=== PATIENT | male | born 1955 | race African-American/Black ===

== ENCOUNTER 2019-08-28 22:30 | Inpatient (IN) | payer BC, MEDICARE ==
[~2019-08-28] VITALS: Ht 177.8 cm; Wt 107.5 kg
[2019-08-28 22:41] VITALS: BP 105/63
--- NOTE | 2019-08-28 22:44 | NUR ---
ED Nurse Note: pt brought in by RENÉE from home c/c epigastric pain with syncopal episode, per EMS report, pt had syncopal episode witnessed by family and pt regained consciousness spontaneously, pt states he was just sitting on the sofa watching tv when this happened, pt reports he hasn't been eating well today but reports he drank two shots of vodka with orange juice. on scene, ems reports pt was hypotensive, systolic in 60s. iv started and fluid started by the medic on scene. pt currently AA&ox4, gcs=15, skin warm and dry, resp even and unlabored on RA, no sx distress, denies n/v/d, sinus rhythm on balance truer, vss, will cont monitor. safety precautions in place, family at the bedside, pt advised to notify staff if needed assist.
[2019-08-28 22:46] LABS: BASOPHILS % (AUTO) 1.2 % (0.0-2.0); EOSINOPHILS % (AUTO) 3.3 % (0.0-3.0); HEMATOCRIT 41.7 % (42.0-52.0); LYMPHOCYTES % (AUTO) 39.7 % (20.0-45.0); MEAN CORPUSCULAR VOLUME 87 FL (80-99); MONOCYTES % (AUTO) 9.7 % (1.0-10.0); PLATELET COUNT 233 K/UL (150-450); RED BLOOD COUNT 4.81 M/UL (4.70-6.10); RED CELL DISTRIBUTION WIDTH 11.4 % (11.6-14.8); WHITE BLOOD COUNT 4.7 K/UL (4.8-10.8)
[2019-08-28 22:58] LABS: ANION GAP 11 mmol/L (5-15); BLOOD UREA NITROGEN 17 mg/dL (7-18); CALCIUM 8.6 MG/DL (8.5-10.1); CARBON DIOXIDE 26 MMOL/L (21-32); CHLORIDE 106 MMOL/L (98-107); CREATININE 1.6 MG/DL (0.55-1.30); SODIUM 143 MMOL/L (136-145)
[2019-08-28] MEDS ORDERED: Aspirin Baby 81mg ORAL ONE (23:00)
[2019-08-28 23:09] LABS: ALANINE AMINOTRANSFERASE 41 U/L (12-78); ALBUMIN/GLOBULIN RATIO 1.3 (1.0-2.7); ALKALINE PHOSPHATASE 77 U/L (46-116); ASPARTATE AMINO TRANSFERASE 24 U/L (15-37); BILIRUBIN,TOTAL 0.5 MG/DL (0.2-1.0)
[2019-08-28 23:44] VITALS: BP 106/60
--- NOTE | 2019-08-28 23:44 | NUR ---
ED Nurse Note: ice pack provided for pt's forehead to help with swelling pt provided with warm blanket and safety precautions in place, pt advised to notify staff if need assist. pt resting at this time.
[2019-08-29] MEDS ORDERED: GARLIC1 EAC1 PO (00:01)
[2019-08-29] MEDS ORDERED: FISH OIL CAP1000 MG ORAL (00:01)
[2019-08-29] MEDS ORDERED: GINGER250 MG PO (00:01)
[2019-08-29] MEDS ORDERED: MULTIVITAMINS1 EAC2 ORAL (00:01)
--- NOTE | 2019-08-29 00:02 | Emergency Room Report ---
History of Present Illness General Chief Complaint: Abdominal Pain Source: EMS Present Illness HPI Patient is a 64-year-old male presents after a witnessed syncopal episode. He had been brought in by EMS. Patient denies any preceding chest discomfort. He reports having some prior history of hypertension. Denies any recent vomiting or diarrhea. Denies any bloody stools. Reports having some burning sensation to the epigastric area initially. Reports feeling somewhat hot prior to passing out. No prior syncopal episodes. Denies any headache currently. Denies any other discomfort to his extremities or to his neck. He had prior history of some orthopedic surgeries as well as hypertension but does not currently take any medications. Allergies: Coded Allergies: PENICILLINS (Unverified Allergy, Mild, 08/28/19) Patient History Past Medical History: see triage record, HTN Reviewed Nursing Documentation: PMH: Agreed; PSxH: Agreed Nursing Documentation-PMH Past Medical History: No Stated History Review of Systems All Other Systems: negative except mentioned in HPI Physical Exam Vital Signs Date Time Temp Pulse Resp B/P (MAP) Pulse Ox O2 Delivery O2 Flow Rate FiO2 08/28/19 22:22 97.9 64 20 117/72 (87) 96 Nasal Cannula 2.0 Sp02 EP Interpretation: reviewed, normal General Appearance: normal inspection, well appearing, no apparent distress, alert, GCS 15, obese Head: other - forehead swelling, no laceration Eyes: bilateral eye PERRL ENT: normal ENT inspection, hearing grossly normal, normal voice Neck: normal inspection, full range of motion, supple, no bony tend Respiratory: normal inspection, lungs clear, normal breath sounds, no respiratory distress, no retraction, no wheezing Cardiovascular #1: regular rate, rhythm, no edema Gastrointestinal: normal inspection, normal bowel sounds, non tender, soft, no guarding, no hernia Genitourinary: no CVA tenderness Musculoskeletal: normal inspection, back normal, normal range of motion Neurologic: normal inspection, alert, oriented x3, responsive, pharmacist technician III-XII nml as tested, speech normal Psychiatric: normal inspection, judgement/insight normal, mood/affect normal Skin: no rash Medical Decision Making Diagnostic Impression: Primary Impression: Syncope Additional Impression: Bradycardia ER Course Presented after syncopal episode. Differential diagnosis include was not limited to arrhythmia, vasovagal episode, dehydration, pulmonary embolism among others. Because of complexity of patient's case laboratory tests and imaging studies were ordered. Patient was noted to have some prior history of hypertension however blood pressure was noted to be low. He denied any leg pain or swelling consistent with deep venous thrombosis. Patient's mental status appeared to be at baseline throughout ER course. Patient was given oral aspirin. EKG showed sinus bradycardia with biatrial enlargement. Patient does state that he is a former smoker. Patient's oxygen saturation is 99%. He was started on IV fluids. Dr. Micheal Aranda was contacted for inpatient observation and agreed to admit the patient. Labs Test 08/28/19 22:35 White Blood Count 4.7 K/UL (4.8-10.8) Red Blood Count 4.81 M/UL (4.70-6.10) Hemoglobin 15.0 G/DL (14.2-18.0) Hematocrit 41.7 % (42.0-52.0) Mean Corpuscular Volume 87 FL (80-99) Mean Corpuscular Hemoglobin 31.1 PG (27.0-31.0) Mean Corpuscular Hemoglobin Concent 35.9 G/DL (32.0-36.0) Red Cell Distribution Width 11.4 % (11.6-14.8) Platelet Count 233 K/UL (150-450) Mean Platelet Volume 7.8 FL (6.5-10.1) Neutrophils (%) (Auto) 46.0 % (45.0-75.0) Lymphocytes (%) (Auto) 39.7 % (20.0-45.0) Monocytes (%) (Auto) 9.7 % (1.0-10.0) Eosinophils (%) (Auto) 3.3 % (0.0-3.0) Basophils (%) (Auto) 1.2 % (0.0-2.0) Prothrombin Time 10.3 SEC (9.30-11.50) Prothromb Time International Ratio 1.0 (0.9-1.1) Activated Partial Thromboplast Time 25 SEC (23-33) D-Dimer 0.29 mg/L FEU (0.00-0.49) Sodium Level 143 MMOL/L (136-145) Potassium Level 4.0 MMOL/L (3.5-5.1) Chloride Level 106 MMOL/L (98-107) Carbon Dioxide Level 26 MMOL/L (21-32) Anion Gap 11 mmol/L (5-15) Blood Urea Nitrogen 17 mg/dL (7-18) Creatinine 1.6 MG/DL (0.55-1.30) Estimat Glomerular Filtration Rate 43.6 mL/min (>60) Glucose Level 122 MG/DL (74-106) Calcium Level 8.6 MG/DL (8.5-10.1) Total Bilirubin 0.5 MG/DL (0.2-1.0) Aspartate Amino Transf (AST/SGOT) 24 U/L (15-37) Alanine Aminotransferase (ALT/SGPT) 41 U/L (12-78) Alkaline Phosphatase 77 U/L (46-116) Troponin I 0.003 ng/mL (0.000-0.056) Pro-B-Type Natriuretic Peptide 16 pg/mL (0-125) Total Protein 7.2 G/DL (6.4-8.2) Albumin 4.0 G/DL (3.4-5.0) Globulin 3.2 g/dL Albumin/Globulin Ratio 1.3 (1.0-2.7) Lipase 87 U/L (73-393) EKG Diagnostic Results Rate: normal Rhythm: NSR ST Segments: no acute changes Last Vital Signs Date Time Temp Pulse Resp B/P (MAP) Pulse Ox O2 Delivery O2 Flow Rate FiO2 08/28/19 23:44 97.9 64 18 106/60 98 Room Air 08/28/19 22:22 2.0 Status: improved Disposition: ADMITTED INPATIENT Condition: Stable Referrals: NOT CHOSEN IPA/,REFERRING (PCP) Roland Alvarado MD Aug 29, 2019 00:02
--- NOTE | 2019-08-29 00:35 | NUR ---
TRANSFER TO FLOOR: Patient transferred to Tele per ERMD order, pt vss, resp even and unlabored on RA, iv intact and patent, pt sinus rhythm on senior statistician, all belongings sent w/ pt w/ completed list, pt's wallet was given to pt's daughter Gudelia, report given to SHARIFA Loredo and endorsed care. safety precautions in place, pt transferred via gurney.
--- NOTE | 2019-08-29 00:35 | NUR ---
NURSE NOTES: Received patient from ER. Patient transported to [facility] via [facility]. Patient is awake, alert and oriented x4. Ambulatory, transferred safely independently from [place] to bed. Steady, no c/o dizziness, weakness, moves all extremities, equal bilaterally, 5/5. 18 gauge iv on right ac intact, patent, in infiltration. BP 127/88. On room air, o2sat 97%, bilateral lung sounds clear. Active bowel sounds in all quadrants. Skin intact. No edema on extremities. Bilateral radial pulses present, normal. Patient endorses that he fell when he fainted and hit his head, ER MD was made aware, no CT ordered. Pupils equal and reactive to light. Hematoma above left eye brow. Closed, no discoloration. No c/o pain, states he doesn't need any pain medications. Patient also c/o that he hit his lip when he fell, no bleeding or open wounds seen.
--- NOTE | 2019-08-29 00:50 | NUR ---
NURSE NOTES: Oriented patient to unit, bed in low position, locked, call light within reach, side rails up x2. Yellow gown, socks, fall risk sign in place.
--- NOTE | 2019-08-29 01:10 | NUR ---
NURSE NOTES: Called Dr. Micheal Aranda MD for admitting orders. Dr. Aranda ordered regular diet, 1/2NS at 100 ml/hr, heparin 5000 units sq q 12 hours, tylenol 650mg g1narrb PRN, CBC, CMP, TSH, and Troponin and then hung up.
--- NOTE | 2019-08-29 01:30 | NUR ---
NURSE NOTES: 10/15 NS started at 100 ml/hr. Informed patient that he is connected to the IV and to call for assistance if he needs to get up.
[2019-08-29] MEDS ORDERED: APPLE CIDER VI300 MG PO (02:03)
[2019-08-29] MEDS ORDERED: OLIVE LEAF EXT250 MG PO (02:03)
--- NOTE | 2019-08-29 03:00 | Diagnostic Imaging Report ---
EXAM: XR Chest, 1 View CLINICAL HISTORY: SYNCOPE TECHNIQUE: Frontal view of the chest. COMPARISON: No relevant prior studies available. FINDINGS: Lungs: No consolidation or mass. Pleural space: No acute findings Heart: cardiomegaly. Bones joints: No acute findings. IMPRESSION: No acute cardiopulmonary process. Cardiomegaly.
[2019-08-29 04:28] VITALS: BP 103/58
[2019-08-29 05:52] LABS: BASOPHILS % (AUTO) 1.2 % (0.0-2.0); EOSINOPHILS % (AUTO) 1.9 % (0.0-3.0); HEMATOCRIT 40.1 % (42.0-52.0); HEMOGLOBIN 13.8 G/DL (14.2-18.0); LYMPHOCYTES % (AUTO) 27.8 % (20.0-45.0); MEAN CORPUSCULAR VOLUME 88 FL (80-99); MONOCYTES % (AUTO) 10.2 % (1.0-10.0); PLATELET COUNT 203 K/UL (150-450); RED BLOOD COUNT 4.53 M/UL (4.70-6.10); RED CELL DISTRIBUTION WIDTH 12.2 % (11.6-14.8); WHITE BLOOD COUNT 5.6 K/UL (4.8-10.8)
[2019-08-29 06:20] LABS: ALANINE AMINOTRANSFERASE 37 U/L (12-78); ALBUMIN 3.5 G/DL (3.4-5.0); ALBUMIN/GLOBULIN RATIO 1.2 (1.0-2.7); ALKALINE PHOSPHATASE 75 U/L (46-116); ANION GAP 10 mmol/L (5-15); ASPARTATE AMINO TRANSFERASE 20 U/L (15-37); BILIRUBIN,TOTAL 0.4 MG/DL (0.2-1.0); BLOOD UREA NITROGEN 16 mg/dL (7-18); CALCIUM 8.5 MG/DL (8.5-10.1); CARBON DIOXIDE 25 MMOL/L (21-32); CHLORIDE 108 MMOL/L (98-107); CREATININE 1.2 MG/DL (0.55-1.30); SODIUM 143 MMOL/L (136-145)
--- NOTE | 2019-08-29 07:00 | NUR ---
NURSE NOTES: HANDOFF RECEIVED FROM SHARIFA JEAN-BAPTISTE. PATIENT RECEIVED AWAKE AND ALERT, RESTING IN BED. PATIENT ABLE TO MAKE NEEDS KNOWN. NO OBVIOUS SIGNS OF DISTRESS NOTED. BED IN THE LOW AND LOCKED POSITION WITH CALL LIGHT WITHIN REACH. IV FLUIDS 1/2NS RUNNING AT 100ML/HOUR. WILL CONTINUE TO MONITOR.
--- NOTE | 2019-08-29 07:19 | NUR ---
HAND-OFF: Report given to Willi SKAGGS. Plan of care endorsed.
[2019-08-29] MEDS ORDERED: Heparin 5000 units/ml inj SUBQ SCH (09:00)
--- NOTE | 2019-08-29 09:26 | NUR ---
NURSE NOTES: PATIENT DISCHARGED PER DR VELASCO. PATIENT LEFT STABLE AND AMBULATING WITH HIS ADULT DAUGHTER. IV REMOVED NO BLEEDING OR HEMATOMA NOTED. PATIENT SIGNED THE DISCHARGE FORMS AND WAS GIVEN DISCHARGE INSTRUCTIONS AND TOLD TO FOLLOW UP WITH HIS PRIMARY CARE PHYSICIAN. BELONGINGS LIST SIGNED AND PLACED IN THE CHART.
--- NOTE | 2019-08-29 17:15 | History and Physical Report ---
DATE OF ADMISSION: 08/28/2019 CHIEF COMPLAINT AND REASON FOR HOSPITALIZATION: The patient admitted with syncope. HISTORY OF PRESENT ILLNESS: The patient was watching a basketball game at home with family and had a few alcoholic drinks. He suddenly felt hot, sweaty, nauseous, and decreased vision. He had an episode of syncope at home lasting a very minimal time. He came to the emergency room by paramedics. Apparently, there was some bradycardia on route. He recently saw a physician and had a blood pressure 160 systolic, but no medicines were prescribed and so he should follow up with further monitoring of blood pressure. His blood pressure was low normal in the emergency room like 106/60. The patient is now feeling well. There is no chest pain or palpitations. There is no history of coronary artery disease, arrhythmia, or seizure disorder. ALLERGIES: Penicillin. MEDICATIONS: Octx-dce-owbtubv vitamins. PAST SURGICAL HISTORY: Right and left shoulder, right elbow, carpal tunnel right. SYSTEM REVIEW: Negative except for the problems noted above. PHYSICAL EXAMINATION: GENERAL: The patient is alert, well-developed man, in no acute distress. VITAL SIGNS: Temperature 96.6, pulse 58, respirations 19, and blood pressure 103/58. HEAD, EYES, EARS, NOSE, AND THROAT: Sclerae are nonicteric. Ocular motions intact in all directions. Oral mucosa moist. NECK: No adenopathy. LUNGS: Clear. HEART: Regular rhythm. No murmur. ABDOMEN: Soft without organomegaly or masses. EXTREMITIES: No edema, cyanosis, or clubbing. NEUROLOGIC: He is alert and oriented. Cranial nerves are intact. LABORATORY DATA: Pertinent labs noted. BUN 17 and creatinine 1.6, after hydration 16 and 1.2. Troponin 0.003 and 0.010. IMPRESSION: 1. Syncope, etiology unclear, possibly related to alcohol, possible vasovagal, possible occult arrhythmia. 2. Bradycardia, mild, likely not the etiology of syncope. PLAN: The patient is observed on telemetry. He wishes to go home. We will make early discharge. Micheal Aranda M.D. DR: MARY JOB#: [id number] CC:
--- NOTE | 2019-08-29 20:00 | Discharge Summary ---
DATE OF ADMISSION: 08/28/2019 DATE OF DISCHARGE: 08/29/2019 PERTINENT HISTORY: The patient presents with an episode of syncope at home. This followed a few alcoholic drinks. PERTINENT PHYSICAL EXAM: Exam was negative. COURSE IN THE HOSPITAL: The patient apparently had bradycardia by the paramedics, but had no arrhythmias during his hospital stay. He was hydrated and felt well. No evidence of syncope, near syncope or hypotension. He did have mild elevation in BUN and creatinine 17 and 1.6 on admission, 16 and 1.2 after hydration. The patient felt better, wished to go home. He was instructed to follow up in the office of Dr. Aranda or any other provider and get a Zio patch or other evaluation for arrhythmia. FINAL DIAGNOSES: 1. Syncope. 2. Dehydration. DISCHARGE DISPOSITION: Home on no medications. FOLLOWUP: Follow up as above. Micheal Aranda M.D. DR: SHONDA/NEIL JOB#: [id number] CC:
--- NOTE | 2019-09-01 16:19 | NUR ---
*-* INSURANCE *-* BX/BS of No. [facility] is Primary. Please submit clinicals and discharge summary. Ref#[id number] No CM #[phone] fax#[phone]
--- NOTE | 2019-09-01 17:29 | Cardiology Report ---
APPROVED REPORT EKG Measurement Heart [id number] VT [id number] Poor data quality, interpretation may be adversely affected Normal sinus rhythm Normal ECG
== END 2019-08-29 09:20 | disposition home or self-care (01) | DRG 641 ==
LOC: EDBD 22:30 → EMR 22:49 → 2E 23:00 → EDBEDREQ 08-29 00:17
DX: E86.0 Dehydration (principal); R55 Syncope and collapse; R00.1 Bradycardia, unspecified; Z88.0 Allergy status to penicillin
CPT/HCPCS: 36415; 71045; 80053; 83690; 83880; 84443; 84484; 85025; 85379; 85610; 85730; 93005; 99285